=== PATIENT | male | born 1940 ===

== ENCOUNTER 2019-09-08 09:41 | Outpatient (CLI) | payer MEDICARE, BC ==
--- NOTE | 2019-09-08 10:00 | RAD ---
XR Chest Pa Lat STANDARD HISTORY: Chronic cough COMPARISON: None FINDINGS: The heart size is normal. The aorta is tortuous. There are degenerative changes in the spin e. The lungs are well expanded without focal areas of consolidation, pneumothorax or pleural effusions. IMPRESSION: No radiographic evidence of acute cardiopulmonary process.
== END 2019-09-08 09:42 | disposition home or self-care (01) ==
LOC: MADRAD 09:41
PROVIDERS: ATTEND Surgery Plastic and Reconstructive Surgery
DX: R05 Cough (principal)
CPT/HCPCS: 71046